=== PATIENT | female | born 1950 | race Hispanic/Latino ===

== ENCOUNTER 2024-11-15 07:14 | Outpatient (CLI) | payer BC, MEDICARE | END 2024-11-15 07:15 | disposition home or self-care (01) | LOC: CSHCT 07:14 | PROVIDERS: ATTEND Student in an Organized Health Care Education/Training Program | DX: M79.651 Pain in right thigh (principal); S72.401K Unspecified fracture of lower end of right femur, subsequent encounter for closed fracture with nonunion ==

== ENCOUNTER 2025-02-01 07:05 | Outpatient (CLI) | payer BC, MEDICARE ==
[2025-02-01 08:06] LABS: Estimated GFR - POC 59.0
[2025-02-01] MEDS ORDERED: Iopamidol 300 61% 100 ML VIAL FS ONE (11:03)
== END 2025-02-01 07:06 | disposition home or self-care (01) ==
LOC: CSHCT 07:05
PROVIDERS: ATTEND Family Medicine
DX: R19.00 Intra-abdominal and pelvic swelling, mass and lump, unspecified site (principal); K57.30 Diverticulosis of large intestine without perforation or abscess without bleeding; K59.00 Constipation, unspecified; K76.9 Liver disease, unspecified
CPT/HCPCS: 36415; 74178; 82565; Q9967